=== PATIENT | female | born 1950 | race African-American/Black ===

== ENCOUNTER 2017-05-18 14:23 | Inpatient (IN) | payer OTHER, BC ==
[2017-05-18 17:16] LABS: BASOPHIL 1.6 % (0-2.0); MCHC 29.4 g/dl (32.0-36.0); MEAN CELL VOLUME 62.3 fl (80-96); MEAN PLT VOLUME 8.8 fl (7.5-11.1); NEUTROPHILS 74.3 % (42.8-82.8); PLATELET COUNT 429 K/MM3 (134-434); RDW 21.8 % (11.6-15.6); WHITE BLOOD COUNT 10.6 K/mm3 (4.0-10.0)
[2017-05-18 17:25] LABS: MCH 18.3 pg (25.7-33.7)
[2017-05-18 17:38] LABS: INR 1.03 (0.82-1.09); PROTHROMBIN TIME (PATIENT) 11.3 SEC (9.98-11.88)
[2017-05-18 18:01] LABS: ALBUMIN 4.1 g/dl (3.4-5.0); ALK PHOS 84 U/L (45-117); ANION GAP 10 (8-16); BILIRUBIN,TOTAL 1.1 mg/dL (0.2-1.0); CALCIUM 9.4 mg/dL (8.5-10.1); CO2 27 mmol/L (21-32); CREATININE 0.7 mg/dL (0.55-1.02); GLUCOSE,RANDOM 89 mg/dL (74-106); SGOT/AST 22 U/L (15-37); SGPT/ALT 22 U/L (12-78); TOT PROT 7.9 g/dl (6.4-8.2)
[2017-05-18 18:44] LABS: URINE APPEARANCE CLEAR; URINE BILIRUBIN NEGATIVE (NEGATIVE); URINE BLOOD NEGATIVE (NEGATIVE); URINE COLOR STRAW; URINE GLUCOSE (UA) NEGATIVE (NEGATIVE); URINE KETONE NEGATIVE (NEGATIVE); URINE NITRITE NEGATIVE (NEGATIVE); URINE PROTEIN NEGATIVE (NEGATIVE); URINE UROBILINOGEN NEGATIVE mg/dL (0.2-1.0)
[2017-05-18 18:45] LABS: URINE LEUK ESTERASE 2+ (NEGATIVE)
[2017-05-18 18:51] LABS: URINE BACTERIA RARE /hpf (NONE SEEN); URINE MUCUS RARE; URINE RBC 2 /hpf (0-3); URINE WBC 16 /hpf (3-5)
[2017-05-18 19:14] LABS: PLATELET ESTIMATE SLT INCREASED (NORMAL)
[2017-05-18 19:15] LABS: ANISOCYTOSIS 2+; HYPOCHROMIA 3+; MICROCYTOSIS 2+; POIKILOCYTOSIS 1+; POLYCHROMASIA FEW
[2017-05-18 19:16] LABS: OVALOCYTES 1+; TEAR DROP CELLS FEW
--- NOTE | 2017-05-18 19:53 | PDOC ---
History of Present Illness <Izabella Harryis - Last Filed: 05/18/17 20:07> - General History Source: Patient Exam Limitations: No Limitations - History of Present Illness Initial Comments: This is a 67 yo female with h/o chronic iron deficiency anemia, GERD, PUD, diverticulitis, NIDDM, and HTN who presents for low hemoglobin measured on routine labs at her PCP's office yesterday. Dr. Multani states that the patient's hemoglobin was 6.2 yesterday and he advised her to come in to the ED for basic lab workup, transfusion, fecal occult blood test, admission, and consultation with hematology and oncology. The patient denies any new symptoms over the past few days and notes that she has had a gradual onset of fatigue, generalized weakness, and lightheadedness over the past several months. She only recalls one episode of black stool about two months ago. She denies any chest pain, shortness of breath, abdominal pain, headache, vision changes, fever, or other symptoms of illness. <DarcySharon - Last Filed: 05/18/17 22:10> - General Chief Complaint: Revisit, Lab Variance Stated Complaint: LOW BLOOD COUNT (PCP SENT) Time Seen by Provider: 05/18/17 15:44 Past History <KamrynIzabellaKhai - Last Filed: 05/18/17 20:07> - Past Medical History Anemia: Yes (iron deficiency, pt states since youth) Diabetes: Yes GI Disorders: Yes HTN: Yes Hypercholesterolemia: Yes Psychiatric Problems: Yes (ANXIETY.) Other medical history: GUILLIAN BARRE. - Surgical History Abdominal Surgery: Yes Cholecystectomy: Yes - Psycho/Social/Smoking Cessation Hx Anxiety: Yes Suicidal Ideation: No Smoking History: Never smoked Hx Alcohol Use: No Drug/Substance Use Hx: No Substance Use Type: None <Taveras,Sharon - Last Filed: 05/18/17 22:10> - Past Medical History Allergies/Adverse Reactions: Allergies Allergy/AdvReac Type Severity Reaction Status Date / Time latex Allergy Difficulty Verified 05/18/17 14:24 Breathing No Known Drug Allergies Allergy Verified 05/18/17 14:24 Home Medications: Ambulatory Orders Buspirone HCl 15 mg PO PRN PRN 02/13/14 Diltiazem HCl [Diltiazem ER] 180 mg PO DAILY 05/07/14 Ezetimibe/Simvastatin [Vytorin 10-20 mg Tablet] 1 each PO DAILY 02/13/14 Omeprazole 40 mg PO DAILY 02/13/14 Sitagliptin Phos/Metformin HCl [Janumet 50-500 mg Tablet] 1 each PO DAILY Sucralfate 1 gm PO BID 02/13/14 Review of Systems - Review of Systems Constitutional: Yes: Weakness (mild generalized), Other (fatigue). No: Chills, Fever, Unexplained wgt Loss HEENTM: No: Nose Congestion, Throat Pain Respiratory: No: Cough, Shortness of Breath Cardiac (ROS): No: Chest Pain, Palpitations ABD/GI: No: Constipated, Diarrhea, Nausea, Vomiting : No: Burning, Dysuria Musculoskeletal: Yes: Other (left shoulder pain). No: Back Pain, Neck Pain Integumentary: No: Bruising, Rash Neurological: No: Headache, Numbness, Tingling, Weakness, Dizziness Endocrine: No: Unexplained Weight Gain, Unexplained Weight Loss Hematologic/Lymphatic: Yes: Anemia <Sharon Taveras - Last Filed: 05/18/17 22:10> *Physical Exam - Vital Signs Last Vital Signs Temp Pulse Resp BP Pulse Ox 98.3 F 64 18 140/66 98 05/18/17 14:24 05/18/17 14:24 05/18/17 14:24 05/18/17 14:24 05/18/17 14:24 <Khai Harry - Last Filed: 05/18/17 20:07> - Vital Signs Last Vital Signs Temp Pulse Resp BP Pulse Ox 98.3 F 64 18 140/66 98 05/18/17 14:24 05/18/17 14:24 05/18/17 14:24 05/18/17 14:24 05/18/17 14:24 - Physical Exam General Appearance: Yes: Nourished, Appropriately Dressed, Other (pale, pleasant adult female who is conversive). No: Apparent Distress HEENT: positive: EOMI, Normal Voice, Pale Conjunctivae, Hearing Grossly Normal. negative: Scleral Icterus (R), Scleral Icterus (L), Nasal Congestion Neck: positive: Trachea midline, Supple. negative: Tender, Rigid Respiratory/Chest: positive: Lungs Clear, Normal Breath Sounds. negative: Respiratory Distress, Crackles, Rhonchi, Stridor, Wheezing Cardiovascular: positive: Regular Rhythm, Regular Rate. negative: Edema, Murmur Vascular Pulses: Dorsalis-Pedis (R): 2+, Doralis-Pedis (L): 2+ Gastrointestinal/Abdominal: positive: Normal Bowel Sounds, Soft. negative: Tender, Organomegaly, Pulsatile Mass, Guarding Rectal Exam: positive: normal exam, normal rectal tone. negative: hemorrhoids Musculoskeletal: positive: Normal Inspection, Other (no pain on ROM of left shoulder, no tenderness to palpation of left shoulder). negative: Decreased Range of Motion, Vertebral Tenderness Extremity: positive: Normal Capillary Refill, Normal Inspection, Normal Range of Motion. negative: Tender, Cyanosis Integumentary: positive: Dry, Warm, Pale. 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 negative : EOM Palsy, Facial Droop, Confused <Sharon Taveras - Last Filed: 05/18/17 22:10> Heart Score/ECG Review - History History: Slightly suspicious - Electrocardiogram EKG: Non specific repolarization disturbance - Age Age: >/= 65 - Risk Factors Risk Factors Heart Score: Yes Hx Hypertension, Yes Hx Diabetes Based on the list above the patient has:: 1-2 risk factors - Troponin Troponin: </= normal limit - Score Heart Score - Total: 4 <Sharon Taveras Filed: 05/18/17 22:10> ED Treatment Course - LABORATORY CBC & Chemistry Diagram: 05/18/17 16:48 05/18/17 16:48 - ADDITIONAL ORDERS Additional order review: Laboratory Results 05/18/17 05/18/17 05/18/17 18:30 18:30 16:48 INR PTT (Actin FS) Sodium Potassium Chloride Carbon Dioxide Anion Gap BUN Creatinine Creat Clearance w eGFR Random Glucose Calcium Total Bilirubin AST ALT Alkaline Phosphatase Troponin I Total Protein Albumin Urine Color Straw Urine Appearance Clear Urine pH 5.0 Urine Protein Negative Urine Glucose (UA) Negative Urine Ketones Negative Urine Blood Negative Urine Nitrite Negative Urine Bilirubin Negative Urine Urobilinogen Negative Ur Leukocyte Esterase 2+ H Urine RBC 2 Urine WBC 16 Ur Epithelial Cells Rare Urine Bacteria Rare Urine Mucus Rare Stool Occult Blood Negative Blood Type O POSITIVE Antibody Screen Negative 05/18/17 05/18/17 05/18/17 16:48 16:48 16:48 INR 1.03 PTT (Actin FS) 27.0 Sodium 139 Potassium 4.0 Chloride 102 Carbon Dioxide 27 Anion Gap 10 BUN 12 Creatinine 0.7 D Creat Clearance w eGFR > 60 Random Glucose 89 Calcium 9.4 Total Bilirubin 1.1 H AST 22 ALT 22 Alkaline Phosphatase 84 Troponin I < 0.02 Total Protein 7.9 Albumin 4.1 Urine Color Urine Appearance Urine pH Urine Protein Urine Glucose (UA) Urine Ketones Urine Blood Urine Nitrite Urine Bilirubin Urine Urobilinogen Ur Leukocyte Esterase Urine RBC Urine WBC Ur Epithelial Cells Urine Bacteria Urine Mucus Stool Occult Blood Blood Type Antibody Screen 05/18/17 16:48 RBC 3.67 MCV 62.3 L D MCHC 29.4 L RDW 21.8 H D MPV 8.8 Neutrophils % 74.3 Lymphocytes % 18.1 Monocytes % 5.0 Eosinophils % 1.0 Basophils % 1.6 <Khai Harry - Last Filed: 05/18/17 20:07> - LABORATORY CBC & Chemistry Diagram: 05/18/17 16:48 05/18/17 16:48 - ADDITIONAL ORDERS Additional order review: Laboratory Results 05/18/17 05/18/17 05/18/17 18:30 18:30 16:48 INR PTT (Actin FS) Sodium Potassium Chloride Carbon Dioxide Anion Gap BUN Creatinine Creat Clearance w eGFR Random Glucose Calcium Total Bilirubin AST ALT Alkaline Phosphatase Troponin I Total Protein Albumin Urine Color Straw Urine Appearance Clear Urine pH 5.0 Urine Protein Negative Urine Glucose (UA) Negative Urine Ketones Negative Urine Blood Negative Urine Nitrite Negative Urine Bilirubin Negative Urine Urobilinogen Negative Ur Leukocyte Esterase 2+ H Urine RBC 2 Urine WBC 16 Ur Epithelial Cells Rare Urine Bacteria Rare Urine Mucus Rare Stool Occult Blood Negative Blood Type O POSITIVE Antibody Screen Negative 05/18/17 05/18/17 05/18/17 16:48 16:48 16:48 INR 1.03 PTT (Actin FS) 27.0 Sodium 139 Potassium 4.0 Chloride 102 Carbon Dioxide 27 Anion Gap 10 BUN 12 Creatinine 0.7 D Creat Clearance w eGFR > 60 Random Glucose 89 Calcium 9.4 Total Bilirubin 1.1 H AST 22 ALT 22 Alkaline Phosphatase 84 Troponin I < 0.02 Total Protein 7.9 Albumin 4.1 Urine Color Urine Appearance Urine pH Urine Protein Urine Glucose (UA) Urine Ketones Urine Blood Urine Nitrite Urine Bilirubin Urine Urobilinogen Ur Leukocyte Esterase Urine RBC Urine WBC Ur Epithelial Cells Urine Bacteria Urine Mucus Stool Occult Blood Blood Type Antibody Screen 05/18/17 16:48 RBC 3.67 MCV 62.3 L D MCHC 29.4 L RDW 21.8 H D MPV 8.8 Neutrophils % 74.3 Lymphocytes % 18.1 Monocytes % 5.0 Eosinophils % 1.0 Basophils % 1.6 - RADIOLOGY Radiology Studies Ordered: Category Date Time Status CHEST X-RAY PORTABLE* [RAD] Stat Radiology 05/18/17 17:35 Ordered <Sharon Taveras - Last Filed: 05/18/17 22:10> Medical Decision Making - Medical Decision Making 67 yo female with chronic iron deficiency anemia, GERD, PUD, NIDDM, HTN p/w lab finding of anemia. Pt notes no change in her chronic baseline over the past few weeks, but does fatigue during the day. Exam notable for VS wnl, pale skin, conjunctivae, and palm creases. DDX includes iron or b12 deficiency, blood loss (most likely GI), myelodysplasia /myelofibrosis, Ordered are CBCD, CMP, coags, type&screen, FOBT, EKG, troponin (d/t shoulder pain), UA. Laboratory Tests 05/18/17 05/18/17 05/18/17 16:48 16:48 16:48 WBC 10.6 H RBC 3.67 Hgb 6.7 L* D Hct 22.9 L D MCV 62.3 L D MCH 18.3 L MCHC 29.4 L RDW 21.8 H D Plt Count 429 D MPV 8.8 Neutrophils % 74.3 Lymphocytes % 18.1 Monocytes % 5.0 Eosinophils % 1.0 Basophils % 1.6 Platelet Estimate Slt increased Polychromasia Few Hypochromic-Microcytic 3+ Poikilocytosis 1+ Anisocytosis 2+ Microcytosis 2+ Macrocytosis 1+ Tear Drop Cells Few Ovalocytes 1+ Retic Count INR PTT (Actin FS) Sodium 139 Potassium 4.0 Chloride 102 Carbon Dioxide 27 Anion Gap 10 BUN 12 Creatinine 0.7 D Creat Clearance w eGFR > 60 Random Glucose 89 Calcium 9.4 Total Bilirubin 1.1 H AST 22 ALT 22 Alkaline Phosphatase 84 Troponin I < 0.02 Total Protein 7.9 Albumin 4.1 Urine Color Urine Appearance Urine pH Urine Protein Urine Glucose (UA) Urine Ketones Urine Blood Urine Nitrite Urine Bilirubin Urine Urobilinogen Ur Leukocyte Esterase Urine RBC Urine WBC Ur Epithelial Cells Urine Bacteria Urine Mucus Stool Occult Blood Blood Type Antibody Screen 05/18/17 05/18/17 05/18/17 16:48 16:48 16:48 WBC RBC Hgb Hct MCV MCH MCHC RDW Plt Count MPV Neutrophils % Lymphocytes % Monocytes % Eosinophils % Basophils % Platelet Estimate Polychromasia Hypochromic-Microcytic Poikilocytosis Anisocytosis Microcytosis Macrocytosis Tear Drop Cells Ovalocytes Retic Count 2.90 H INR 1.03 PTT (Actin FS) 27.0 Sodium Potassium Chloride Carbon Dioxide Anion Gap BUN Creatinine Creat Clearance w eGFR Random Glucose Calcium Total Bilirubin AST ALT Alkaline Phosphatase Troponin I Total Protein Albumin Urine Color Urine Appearance Urine pH Urine Protein Urine Glucose (UA) Urine Ketones Urine Blood Urine Nitrite Urine Bilirubin Urine Urobilinogen Ur Leukocyte Esterase Urine RBC Urine WBC Ur Epithelial Cells Urine Bacteria Urine Mucus Stool Occult Blood Blood Type O POSITIVE Antibody Screen Negative 05/18/17 05/18/17 18:30 18:30 WBC RBC Hgb Hct MCV MCH MCHC RDW Plt Count MPV Neutrophils % Lymphocytes % Monocytes % Eosinophils % Basophils % Platelet Estimate Polychromasia Hypochromic-Microcytic Poikilocytosis Anisocytosis Microcytosis Macrocytosis Tear Drop Cells Ovalocytes Retic Count INR PTT (Actin FS) Sodium Potassium Chloride Carbon Dioxide Anion Gap BUN Creatinine Creat Clearance w eGFR Random Glucose Calcium Total Bilirubin AST ALT Alkaline Phosphatase Troponin I Total Protein Albumin Urine Color Straw Urine Appearance Clear Urine pH 5.0 Urine Protein Negative Urine Glucose (UA) Negative Urine Ketones Negative Urine Blood Negative Urine Nitrite Negative Urine Bilirubin Negative Urine Urobilinogen Negative Ur Leukocyte Esterase 2+ H Urine RBC 2 Urine WBC 16 Ur Epithelial Cells Rare Urine Bacteria Rare Urine Mucus Rare Stool Occult Blood Negative Blood Type Antibody Screen FOBT is negative, UA without blood. Labs confirm anemia, which is microcytic. Reticulocytes 2.90% yielding reticulocyte index 0.7, inadequate bone marrow response to anemia. Other possibilities on the DDX are anemia of chronic disease, thalassemia, sideroblastic anemia. Blood transfusion is discussed at length with the patient. The patient chooses to defer blood transfusion at this time, as she wishes to talk with her family first. She denies any taoism or cultural conflicts with blood transfusion. VS remain wnl and patient denies symptoms. The patient is admitted to Dr. Multani with consults ordered for Hematology and GI. <Sharon Taveras - Last Filed: 05/18/17 22:10> *DC/Admit/Observation/Transfer - Discharge Dispostion Admit: Yes <Khai Harry - Last Filed: 05/18/17 20:07> - Discharge Dispostion Admit: Yes - Attestations Physician Attestion: I, Dr. Sharon Taveras, attest that this document has been prepared under my direction and personally reviewed by me in its entirety. I further attest, that it accurately reflects all work, treatment, procedures and medical decision -making performed by me. <Sharon Taveras - Last Filed: 05/18/17 22:10> Diagnosis at time of Disposition: Anemia Qualifiers: Anemia type: unspecified type Qualified Code(s): D64.9 - Anemia, unspecified - Discharge Dispostion Condition at time of disposition: Guarded - Referrals Referrals: Luigi Multani MD [Primary Care Provider] -
--- NOTE | 2017-05-18 20:06 | PDOC ---
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 Patient denies nausea/vomiting/melena/bright red blood per rectum. Patient was seen and evaluated by Dr. Adame and referred to the ER for further evaluation and treatment. - Physicial Exam PE: 05/18/17 20:03 Patient is awake and alert, afebrile, hemodynamically stable. Conjunctiva are noted to be pale. Lungs are clear to auscultation; abdomen is soft and nontender and nondistended; rrr; there is no petechial rash. Gait is stable. Patient's stool is guaiac-negative. - Medical Decision Making 05/18/17 20:04 Patient is 67-year-old female with multiple coronary disease, history of chronic anemia who presents to the ER with worsening anemia, associated with mild symptoms. In the ER, patient symptomatically stable without evidence of acute hemorrhage. H&H is noted to be 6 and 22 with a low MCV/MCH and high RDW consistent with iron deficiency anemia. at This time, patient does not know if she wishes to be transfused. Will admit to med/surge for further evaluation and treatment.
[2017-05-18 23:37] VITALS: BMI 30.6
[2017-05-19 07:18] LABS: BASOPHIL 0.9 % (0-2.0); EOSINOPHIL 1.2 % (0-4.5); MCHC 29.4 g/dl (32.0-36.0); MEAN CELL VOLUME 61.6 fl (80-96); MEAN PLT VOLUME 8.8 fl (7.5-11.1); NEUTROPHILS 61.1 % (42.8-82.8); PLATELET COUNT 350 K/MM3 (134-434); RDW 20.9 % (11.6-15.6); WHITE BLOOD COUNT 7.8 K/mm3 (4.0-10.0)
[2017-05-19 07:30] LABS: MCH 18.1 pg (25.7-33.7)
[2017-05-19 07:52] LABS: ALBUMIN 3.3 g/dl (3.4-5.0); ANION GAP 7 (8-16); BILIRUBIN,TOTAL 0.9 mg/dL (0.2-1.0); CALCIUM 9.1 mg/dL (8.5-10.1); CO2 29 mmol/L (21-32); CREATININE 0.7 mg/dL (0.55-1.02); GLUCOSE,RANDOM 99 mg/dL (74-106); LDH 158 U/L (84-246); SGOT/AST 16 U/L (15-37); SGPT/ALT 16 U/L (12-78); TOT PROT 6.5 g/dl (6.4-8.2)
[2017-05-19 08:00] LABS: ALK PHOS 64 U/L (45-117); FERRITIN 2.318 ng/ml (6.9-282.5)
[2017-05-19] MEDS: FERROUS SO4 325 MG TABLET (FP) PO SCH ×2 (08:30→18:18)
[2017-05-19] MEDS: metFORMIN HCL 500 MG TABLET (FP) PO SCH ×2 (08:30→18:18)
[2017-05-19] MEDS: PANTOPRAZOLE 40 MG TABLET (FP) PO SCH ×2 (08:30→11:12)
[2017-05-19 09:02] LABS: ANISOCYTOSIS 2+; HYPOCHROMIA 3+; MICROCYTOSIS 2+; PLATELET ESTIMATE ADEQUATE (NORMAL); POLYCHROMASIA 1+; TARGET CELLS FEW
--- NOTE | 2017-05-19 10:23 | CON.GI ---
Consult Consult Specialty:: GI for Dr. Multani Referred by:: Luigi Multani Reason for Consultation:: Anemia - History of Present Illness Chief Complaint: "My doctor sent me to the hospital" History of Present Illness: 67M admitted through [facility] ER for evaluation of anemia. Ms. Robles explains that she went to Dr. Multani for a check-up, was told that she was anemic and sent to the ER. Outpaient Hgb was 6 per the patient. She does admit to increasing MARIE as well as fatigue over the last several weeks. Aside from 3 days of dark bowel movements noted about three months ago, she denies any change in bowel habits. She also denies any sharlene bleeding or unintentional weight loss. She follows with teachers assistant Dr. Gavin Gates. He has performed upper endoscopise sand colonoscopies on Ms. Robles, the last being in 2014. She tells me that at that time she was told of a large hiatal hernia and otherwise the tests were unremarkable. She remembers that colon polyps were found during her fisrts colonoscopuy (she believes at she has had a total of 4-5 colonoscopies). She takes an 81mg ASA daily along with Omeprazole chronically and otherwise denies NSAID use . Current Hgb 5.6 with a ferritin of 2.3. Stool specimen sent from the ER was negative for occult blood. She has a maternal cousin who had colon cancer diagnosed at age 60, otherwise there is no family history of colorectal cancer or other GI malignancy. Review of [facility] revealed Hgb 11.6 in 2013. - History Source History Provided By: Patient, Medical Record Limitations to Obtaining History: No Limitations - Past Medical History Cardio/Vascular: Yes: CAD (Treated mediclly - follows with Dr. 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 Returned last week) Home Medications - Allergies Allergies/Adverse Reactions: Allergies Allergy/AdvReac Type Severity Reaction Status Date / Time latex Allergy Difficulty Verified 05/18/17 14:24 Breathing No Known Drug Allergies Allergy Verified 05/18/17 14:24 - Home Medications Home Medications: Ambulatory Orders Aspirin [ASA -] 81 mg PO DAILY 05/19/17 Atorvastatin Ca [Lipitor] 20 mg PO HS 05/19/17 Diltiazem HCl [Cartia Xt] 120 mg PO AM 05/19/17 Losartan Potassium 05/19/17 Metformin HCl 500 mg PO BID 05/19/17 Nebivolol [Bystolic -] 10 mg PO HS 05/19/17 Omeprazole 40 mg PO DAILY 05/19/17 Family Disease History - Family Disease History Family Disease History: Other: Father (: 84: blood problem), Mother (Alive: CVA), Son (x 3 healthy) Other Family History: 12 1/2 siblings: healthy Review of Systems - Review of Systems Constitutional: denies: Lethargy, Unintentional Wgt. Loss Cardiovascular: denies: Chest Pain Respiratory: reports: SOB on Exertion Gastrointestinal: reports: Diarrhea (Describes chronic loose BM's after eating) . denies: Abdominal Pain, Bloating, Constipation Genitourinary: denies: Hematuria Physical Exam-GI Vital Signs: Vital Signs Temperature 97.9 F 05/19/17 06:00 Pulse Rate 62 05/19/17 06:00 Respiratory Rate 20 05/19/17 06:00 Blood Pressure 110/57 05/19/17 06:00 O2 Sat by Pulse Oximetry (%) 96 05/19/17 01:32 Constitutional: Yes: Calm Eyes: No: Sclera Icterus Cardiovascular: Yes: Regular Rate and Rhythm. No: Murmur Respiratory: Yes: CTA Bilaterally Gastrointestinal Inspection: Yes: Scars (vertical pelvic surgical scar) ...Auscultate: Yes: Normoactive Bowel Sounds ...Palpate: No: Hepatomegaly, Splenomegaly, Tenderness ...Percussion: No: Tympanitic ...Rectal Exam: Yes: Other (Scant light brown stool, guaiac negative) Edema: No Neurological: Yes: Alert, Oriented Labs: CBC, BMP 05/19/17 05:35 05/19/17 05:35 INR, PTT INR 1.03 (0.82-1.09) 05/18/17 16:48 Laboratory Tests 05/19/17 05:35 Ferritin 2.318 L Imaging - Results Chest X-ray: Report Reviewed Problem List - Problems (1) Microcytic anemia Assessment/Plan: Guaiac negative on exam however with ferritin of 2 suggestive of iron deficiency. I discussed this with Ms. Robles. We discussed further work-up from a GI standpoint when H/H permits. We discussed upper endoscopy / colonoscopy to exclude potential sources such as bleeding blood vessels, blood loss from large hiatal hernia, ulcers, polyps or tumors of the GI tract such as colon cancers. We discussed potential risks of the procedures like but not limited to bleeding, perforation requiring surgery to repair, infection, sedation medication effects all of which could be potentially life threatening. She has agreed to the procedures. Would not bowel prep today as her Hgb is quite low. Possible EGD tomorrow followed by colonoscopy. Cardio eval prior to procedures Code(s): D50.9 - IRON DEFICIENCY ANEMIA, UNSPECIFIED
--- NOTE | 2017-05-19 10:45 | HP ---
DATE OF ADMISSION: DATE OF DICTATION: 05/19/2017 HISTORY OF PRESENT ILLNESS: This is a 67-year-old female known to have anemia in the past. She has also had syndrome in the past with some residual effect. Came to the office for followup. Blood work done showed hemoglobin 6.2. Advised to come to the ER for blood transfusion and workup of the anemia. This morning repeat blood work is 5.6. Patient is not very willing to get blood transfusion. PHYSICAL EXAMINATION: General: Today, she is awake, alert, oriented, not in distress. Vital Signs: Blood pressure is 110/60, pulse 72, respiration 20, temperature 98. HEENT: Unremarkable. Neck: Supple. No JVD. Lungs: Clear. Heart: S1, S2 normal. No S3, S4. Abdomen: Soft. Extremities: Legs - No edema. Rectal: Done yesterday stool guaiac is pending. Patient to be evaluated by glove brusher. IMPRESSION: Severe anemia, etiology not clear. Arteriosclerotic heart disease. PLAN: GI consult, Dr. Chavez, and Hematology consult with Dr. Collazo. Will discuss. Will transfuse 4 units of packed cells today. ANA FERGUSON M.D. [id number]
--- NOTE | 2017-05-19 11:33 | CON.CARD ---
Consult Consult Specialty:: Cardiology Referred by:: Dr. Multani Reason for Consultation:: Cardiac evaluation - History of Present Illness Chief Complaint: Admitted with profound anemia, shortness of breath History of Present Illness: Patient is a 67 year old female well known to us (sees Dr. Delilah Mcbride in the office) with underlying history of coronary artery disease, non- obstructive, angina pectoris, endothelial dysfunction, diastolic left ventricular dysfunction class 0 NYHA classification LV failure, PAF with [id number] score of 4 currently not on anticoagulation, mitral valve regurgitation who presents with weakness and shortness of breath. Patient was brought in from her PMD office and was found to be profoundly anemic to hemoglobin in the 5's. She is to be transfused with PRBC today. She denies chest pain or palpitation at this time. She denies paroxysmal nocturnal dyspnea or orthopnea. She denies fever or chills. She denies headache or lightheadedness. She denies nausea, vomiting, diarrhea or abdominal pain. Cardiology consultation was called for further evaluation. Patient had seen a skidway worker at [facility] in [place] and her last GI work up was in 2014. - History Source History Provided By: Patient, Medical Record Limitations to Obtaining History: No Limitations - Past Medical History Cardio/Vascular: Yes: CAD (Non-obstructive), HTN, Hyperlipdemia Gastrointestinal: Yes: Other (History of colon polyps) Endocrine: Yes: Diabetes Mellitus - Past Surgical History Past Surgical History: Yes: Breast Biopsy (bilateral benign breast cysts), Cholecystectomy (Laparoscopic), (x 3) - Alcohol/Substance Use Hx Alcohol Use: No - Smoking History Smoking history: Never smoked - Social History Usual Living Arrangement: With Spouse ADL: Independent Occupation: Retired [employer] History of Recent Travel: Yes (Road trip to [place] [facility]. Returned last week) Home Medications - Allergies Allergies/Adverse Reactions: Allergies Allergy/AdvReac Type Severity Reaction Status Date / Time latex Allergy Difficulty Verified 05/18/17 14:24 Breathing No Known Drug Allergies Allergy Verified 05/18/17 14:24 - Home Medications Home Medications: Ambulatory Orders Aspirin [ASA -] 81 mg PO DAILY 05/19/17 Atorvastatin Ca [Lipitor] 20 mg PO HS 05/19/17 Diltiazem HCl [Cartia Xt] 120 mg PO AM 05/19/17 Losartan Potassium 05/19/17 Metformin HCl 500 mg PO BID 05/19/17 Nebivolol [Bystolic -] 10 mg PO HS 05/19/17 Omeprazole 40 mg PO DAILY 05/19/17 Family Disease History - Family Disease History Family Disease History: Other: Father (: 84: blood problem), Mother (Alive: CVA), Son (x 3 healthy) Other Family History: 12 1/2 siblings: healthy Review of Systems - Review of Systems Constitutional: denies: Chills, Fever Cardiovascular: reports: Shortness of Breath. denies: Chest Pain, Palpitations Respiratory: reports: SOB. denies: Cough, Hemoptysis, Orthopnea, PND Gastrointestinal: denies: Abdominal Pain, Constipation, Diarrhea, Melena, Nausea , Rectal Bleeding, Vomiting Musculoskeletal: reports: Joint Pain Neurological: reports: Weakness. denies: Dizziness, Headache, Seizure, Syncope Vital Signs: Vital Signs Temperature 97.9 F 05/19/17 06:00 Pulse Rate 62 05/19/17 06:00 Respiratory Rate 20 05/19/17 06:00 Blood Pressure 110/57 05/19/17 06:00 O2 Sat by Pulse Oximetry (%) 96 05/19/17 01:32 Neck: Yes: Supple Respiratory: Yes: CTA Bilaterally Gastrointestinal: Yes: Normal Bowel Sounds, Soft. No: Tenderness Cardiovascular: Yes: Regular Rate and Rhythm JVD: No Carotid Bruit: No PMI: Non-Displaced Heart Sounds: Yes: S1, S2 Edema: No - Other Data Labs, Other Data: CBC, BMP 05/19/17 05:35 05/19/17 05:35 INR, PTT INR 1.03 (0.82-1.09) 05/18/17 16:48 Laboratory Results - last 24 hr 05/18/17 05/18/17 05/18/17 16:48 16:48 16:48 WBC 10.6 H RBC 3.67 Hgb 6.7 L* D Hct 22.9 L D MCV 62.3 L D MCH 18.3 L MCHC 29.4 L RDW 21.8 H D Plt Count 429 D MPV 8.8 Neutrophils % 74.3 Lymphocytes % 18.1 Monocytes % 5.0 Eosinophils % 1.0 Basophils % 1.6 Platelet Estimate Slt increased Platelet Comment Polychromasia Few Hypochromic-Microcytic 3+ Poikilocytosis 1+ Anisocytosis 2+ Microcytosis 2+ Macrocytosis 1+ Target Cells Tear Drop Cells Few Ovalocytes 1+ ESR Retic Count INR PTT (Actin FS) Sodium 139 Potassium 4.0 Chloride 102 Carbon Dioxide 27 Anion Gap 10 BUN 12 Creatinine 0.7 D Creat Clearance w eGFR > 60 POC Glucometer Random Glucose 89 Calcium 9.4 Ferritin Total Bilirubin 1.1 H AST 22 ALT 22 Alkaline Phosphatase 84 LD Total Troponin I < 0.02 Total Protein 7.9 Albumin 4.1 Vitamin B12 Serum Folate TSH Urine Color Urine Appearance Urine pH Ur Specific Perry Urine Protein Urine Glucose (UA) Urine Ketones Urine Blood Urine Nitrite Urine Bilirubin Urine Urobilinogen Ur Leukocyte Esterase Urine RBC Urine WBC Ur Epithelial Cells Urine Bacteria Urine Mucus Stool Occult Blood Blood Type Antibody Screen Crossmatch 05/18/17 05/18/17 05/18/17 16:48 16:48 16:48 WBC RBC Hgb Hct MCV MCH MCHC RDW Plt Count MPV Neutrophils % Lymphocytes % Monocytes % Eosinophils % Basophils % Platelet Estimate Platelet Comment Polychromasia Hypochromic-Microcytic Poikilocytosis Anisocytosis Microcytosis Macrocytosis Target Cells Tear Drop Cells Ovalocytes ESR Retic Count 2.90 H INR 1.03 PTT (Actin FS) 27.0 Sodium Potassium Chloride Carbon Dioxide Anion Gap BUN Creatinine Creat Clearance w eGFR POC Glucometer Random Glucose Calcium Ferritin Total Bilirubin AST ALT Alkaline Phosphatase LD Total Troponin I Total Protein Albumin Vitamin B12 Serum Folate TSH Urine Color Urine Appearance Urine pH Ur Specific Perry Urine Protein Urine Glucose (UA) Urine Ketones Urine Blood Urine Nitrite Urine Bilirubin Urine Urobilinogen Ur Leukocyte Esterase Urine RBC Urine WBC Ur Epithelial Cells Urine Bacteria Urine Mucus Stool Occult Blood Blood Type O POSITIVE Antibody Screen Negative Crossmatch See Detail 05/18/17 05/18/17 05/19/17 18:30 18:30 05:35 WBC 7.8 RBC 3.08 L Hgb 5.6 L* D Hct 18.9 L D MCV 61.6 L MCH 18.1 L MCHC 29.4 L RDW 20.9 H Plt Count 350 MPV 8.8 Neutrophils % 61.1 Lymphocytes % 28.8 D Monocytes % 8.0 Eosinophils % 1.2 Basophils % 0.9 Platelet Estimate Adequate Platelet Comment No clumping noted Polychromasia 1+ Hypochromic-Microcytic 3+ Poikilocytosis Anisocytosis 2+ Microcytosis 2+ Macrocytosis Target Cells Few Tear Drop Cells Ovalocytes ESR Retic Count INR PTT (Actin FS) Sodium Potassium Chloride Carbon Dioxide Anion Gap BUN Creatinine Creat Clearance w eGFR POC Glucometer Random Glucose Calcium Ferritin Total Bilirubin AST ALT Alkaline Phosphatase LD Total Troponin I Total Protein Albumin Vitamin B12 Serum Folate TSH Urine Color Straw Urine Appearance Clear Urine pH 5.0 Ur Specific Perry 1.010 Urine Protein Negative Urine Glucose (UA) Negative Urine Ketones Negative Urine Blood Negative Urine Nitrite Negative Urine Bilirubin Negative Urine Urobilinogen Negative Ur Leukocyte Esterase 2+ H Urine RBC 2 Urine WBC 16 Ur Epithelial Cells Rare Urine Bacteria Rare Urine Mucus Rare Stool Occult Blood Negative Blood Type Antibody Screen Crossmatch 05/19/17 05/19/17 05/19/17 05:35 06:02 06:05 WBC RBC Hgb Hct MCV MCH MCHC RDW Plt Count MPV Neutrophils % Lymphocytes % Monocytes % Eosinophils % Basophils % Platelet Estimate Platelet Comment Polychromasia Hypochromic-Microcytic Poikilocytosis Anisocytosis Microcytosis Macrocytosis Target Cells Tear Drop Cells Ovalocytes ESR 23 Retic Count INR PTT (Actin FS) Sodium 141 Potassium 3.8 Chloride 105 Carbon Dioxide 29 Anion Gap 7 L BUN 15 D Creatinine 0.7 Creat Clearance w eGFR > 60 POC Glucometer 117 Random Glucose 99 Calcium 9.1 Ferritin 2.318 L Total Bilirubin 0.9 AST 16 D ALT 16 D Alkaline Phosphatase 64 D LD Total 158 Troponin I Total Protein 6.5 Albumin 3.3 L Vitamin B12 1932 H Serum Folate 16 TSH 1.10 Urine Color Urine Appearance Urine pH Ur Specific Perry Urine Protein Urine Glucose (UA) Urine Ketones Urine Blood Urine Nitrite Urine Bilirubin Urine Urobilinogen Ur Leukocyte Esterase Urine RBC Urine WBC Ur Epithelial Cells Urine Bacteria Urine Mucus Stool Occult Blood Blood Type Antibody Screen Crossmatch Sinus rhythm, nonspecific ST abnormality Echo: Report Reviewed ((2016) normal LV function, mild LVH, mild MR and TR) Ejection Fraction %: LVEF > or = 40 % Imaging - Results Chest X-ray: Report Reviewed (Right atelectasis) EKG: Report Reviewed Problem List - Problems (1) Anemia Code(s): D64.9 - ANEMIA, UNSPECIFIED Qualifiers: Anemia type: iron deficiency Iron deficiency anemia type: chronic blood loss Qualified Code(s): D50.0 - Iron deficiency anemia secondary to blood loss (chronic) (2) Shortness of breath Code(s): R06.02 - SHORTNESS OF BREATH (3) CAD (coronary artery disease) Code(s): I25.10 - ATHSCL HEART DISEASE OF [place] CORONARY ARTERY W/O ANG PCTRS Qualifiers: Coronary Disease-Associated Artery/Lesion type: [place] artery [place] vs. transplanted heart: [place] heart Associated angina: without angina Qualified Code(s): I25.10 - Atherosclerotic heart disease of [place] coronary artery without angina pectoris (4) HTN (hypertension) Code(s): I10 - ESSENTIAL (PRIMARY) HYPERTENSION Qualifiers: Hypertension type: essential hypertension Qualified Code(s): I10 - Essential (primary) hypertension (5) Hypercholesterolemia Code(s): E78.00 - PURE HYPERCHOLESTEROLEMIA, UNSPECIFIED Assessment/Plan MPI (05/25/16): Small anterior fixed soft tissue attenuation LVEF 81% at rest and 77% at stress Assessment: 1. Profound anemia - GI blood loss with Iron deficiency 2. Coronary artery disease - nonobstructive, angina pectoris 3. Hypertension 4. Hypercholesterolemia 5. PAF currently in sinus rhythm - [id number] score of 4, not on anticoagulation 6. Class 0 NYHA classification LV failure 7. Diastolic LV dysfunction PLAN: 1. There appears to be no absolute contraindication in proceeding with planned GI work up including EGD and colonoscopy in view of absence of ischemic symptoms , decompensated congestive heart failure or malignant arrhythmias. 2. Continue current cardiac medications including Bystolic, Cardizem CD and Cozaar as BP tolerates. Continue Lipitor. Aspirin has been held 3. Transfuse PRBC and monitor H/H closely. Spoke with Dr. Kayode Lin Further plans are to follow Piter Dior MD
[2017-05-19] MEDS: NEBIVOLOL 10 MG TABLET (FP) PO SCH (12:11)
--- NOTE | 2017-05-19 13:27 | CONSULT ---
Consult - text type - Consultation Consultation Note: This is a 67 yo female with h/o chronic iron deficiency anemia, GERD, PUD, diverticulitis, NIDDM, and HTN who presents for anemia. The patient denies any new symptoms over the past few days and notes that she has had a gradual onset of fatigue, generalized weakness, and lightheadedness over the past several months. She only recalls one episode of black stool about two months ago. She denies any chest pain, shortness of breath, abdominal pain, headache, vision changes, fever, or other symptoms of illness. + vague epigastric pain - Past Medical History Anemia: Yes (iron deficiency, pt states since youth) Diabetes: Yes GI Disorders: Yes HTN: Yes Hypercholesterolemia: Yes Psychiatric Problems: Yes (ANXIETY.) Other medical history: GUILLIAN BARRE. - Surgical History Abdominal Surgery: Yes Cholecystectomy: Yes - Psycho/Social/Smoking Cessation Hx Anxiety: Yes Smoking History: Never smoked family h/o breast cancer in maternal aunt and colon cancer in maternal nephew - Past Medical History Allergies/Adverse Reactions: Allergies Allergy/AdvReac Type Severity Reaction Status Date / Time latex Allergy Difficulty Verified 05/18/17 14:24 Breathing No Known Drug Allergies Allergy Verified 05/18/17 14:24 Home Medications: Ambulatory Orders Buspirone HCl 15 mg PO PRN PRN 02/13/14 Diltiazem HCl [Diltiazem ER] 180 mg PO DAILY 02/13/14 Ezetimibe/Simvastatin [Vytorin 10-20 mg Tablet] 1 each PO DAILY 02/13/14 Omeprazole 40 mg PO DAILY 02/13/14 Sitagliptin Phos/Metformin HCl [Janumet 50-500 mg Tablet] 1 each PO DAILY Sucralfate 1 gm PO BID 02/13/14 - Vital Signs Last Vital Signs Temp Pulse Resp BP Pulse Ox 97.9 F 62 20 110/57 96 05/19/17 06:00 05/19/17 06:00 05/19/17 06:00 05/19/17 06:00 05/19/17 01:32 HEENT: SARITA, EOM Intact Oropharynx: No thrush, No mucositis Neck: Supple Cor: RSR, No murmurs, No gallops Lungs: Clear to P&A Abd: Soft, Normal bowel sounds, No organomegaly Ext:No significant edema A/P 67 y/o patient with iron deficiency anemia, severe symptomatic For blood transfusion-- 2 units PRBCs Ferritin 2 For Gi w/u -- EGd/colonoscopy will also check hemoglobin electrophoresis
--- NOTE | 2017-05-19 15:31 | EKG ---
Test Reason : Blood Pressure : / mmHG Vent. Rate : 067 BPM Atrial Rate : 067 BPM P-R Int : 158 ms QRS Dur : 096 ms QT Int : 424 ms P-R-T Axes : 054 013 013 degrees QTc Int : 448 ms NORMAL SINUS RHYTHM POSSIBLE LATERAL INFARCT (CITED ON OR BEFORE 13-FEB-2014) ABNORMAL ECG WHEN COMPARED WITH ECG OF 13-FEB-2014 14:15, NO SIGNIFICANT CHANGE WAS FOUND Confirmed by ALEXI SONI, ERNESTINA ([id number]) on 05/19/2017 3:30:57 PM Referred By: Confirmed By:ERNESTINA TRUONG MD
[2017-05-19] MEDS: ATORVASTATIN CA 20 MG TABLET (FP) PO SCH (22:00)
[2017-05-20 06:07] LABS: SERUM IRON 16 ug/dL (27-139); TOTAL IRON BINDING CAPACITY 440 ug/dL (250-450); UIBC 424 ug/dL (118-369)
[2017-05-20] MEDS: metFORMIN HCL 500 MG TABLET (FP) PO SCH ×2 (06:32→17:10)
[2017-05-20 07:41] LABS: MCH 20.9 pg (25.7-33.7); MCHC 31.2 g/dl (32.0-36.0); MEAN CELL VOLUME 66.8 fl (80-96); PLATELET COUNT 374 K/MM3 (134-434); RDW 27.4 % (11.6-15.6); WHITE BLOOD COUNT 9.2 K/mm3 (4.0-10.0)
[2017-05-20 07:50] LABS: ALBUMIN 3.7 g/dl (3.4-5.0); ANION GAP 7 (8-16); CALCIUM 9.4 mg/dL (8.5-10.1); CO2 29 mmol/L (21-32); CREATININE 0.8 mg/dL (0.55-1.02); GLUCOSE,RANDOM 105 mg/dL (74-106); SGOT/AST 18 U/L (15-37); SGPT/ALT 19 U/L (12-78)
[2017-05-20 07:52] LABS: ALK PHOS 70 U/L (45-117); BILIRUBIN,TOTAL 1.7 mg/dL (0.2-1.0); TOT PROT 7.4 g/dl (6.4-8.2)
--- NOTE | 2017-05-20 08:44 | PN ---
Progress Note, Physician Chief Complaint: Feels better History of Present Illness: june Morejon hematology consult and june Pearce GI consult appreciated - Current Medication List Current Medications: Active Medications Atorvastatin Calcium (Lipitor -) 20 mg PO HS [facility] Last Admin: 05/19/17 22:00 Dose: 20 mg Bupropion HCl (Wellbutrin Xl -) 150 mg PO DAILY [facility] Last Admin: 05/19/17 18:18 Dose: Not Given Diltiazem HCl (Cardizem Cd -) 120 mg PO DAILY [facility] Last Admin: 05/19/17 11:31 Dose: 120 mg Ferrous Sulfate (Feosol -) 325 mg PO BIDWM [facility] Last Admin: 05/19/17 18:18 Dose: 325 mg Metformin HCl (Glucophage -) 500 mg PO BIDAC [facility] Last Admin: 05/20/17 06:32 Dose: Not Given Nebivolol (Bystolic -) 10 mg PO DAILY [facility] Last Admin: 05/19/17 12:11 Dose: 10 mg Pantoprazole Sodium (Protonix -) 40 mg PO DAILY [facility] Last Admin: 05/19/17 11:12 Dose: Not Given - Objective Vital Signs: Vital Signs Temperature 98.7 F 05/19/17 23:00 Pulse Rate 54 L 05/19/17 23:00 Respiratory Rate 20 05/19/17 23:00 Blood Pressure 110/65 05/19/17 23:00 O2 Sat by Pulse Oximetry (%) 96 05/19/17 21:00 Constitutional: Yes: No Distress Eyes: Yes: WNL HENT: Yes: WNL Neck: Yes: WNL Cardiovascular: Yes: WNL Respiratory: Yes: WNL Gastrointestinal: Yes: Normal Bowel Sounds ...Rectal Exam: Yes: Deferred Genitourinary: Yes: WNL Edema: No Psychiatric: Yes: WNL Labs: CBC, BMP 05/20/17 06:00 05/20/17 06:00 INR, PTT INR 1.03 (0.82-1.09) 05/18/17 16:48 Assessment/Plan EGD and colonoscopy
[2017-05-20] MEDS: FERROUS SO4 325 MG TABLET (FP) PO SCH ×2 (08:48→17:11)
[2017-05-20] MEDS ORDERED: ePHEDrine SULFATE 50 MG/1 ML AMPULE ONE (10:19)
--- NOTE | 2017-05-20 11:10 | PN ---
Progress Note (short form) - Note Progress Note: GI Procedure NOte: Please see scanned EGD report. Multiple shallow but friable Julio César type ulcerations were noted at the cardia which may prove to be the cause of this anemia. Will schedule for colonoscopy after discussion with Dr Dennison. Surgical repair for this hiatal hernia should be considered as it is causing bleeding and I suspect some respiratory compromise as well.
[2017-05-20] MEDS ORDERED: PT OWN MED DRAWER 7, Y5N ONE (12:32)
[2017-05-20] MEDS: PANTOPRAZOLE 40 MG TABLET (FP) PO SCH (12:40)
[2017-05-20] MEDS: NEBIVOLOL 10 MG TABLET (FP) PO SCH (12:40)
[2017-05-20] MEDS: MAG HYDROX/AL HYDROX/SIMETH 30 ML UNIT-DOSE CUP PO SCH ×3 (12:43→22:16)
--- NOTE | 2017-05-20 14:44 | PN ---
Progress Note (short form) - Note Progress Note: GI NOte: Discussed case with Dr. Dennison. Have scheduled colonoscopy for 05/23 at 9AM and have entered prep orders.
[2017-05-20] MEDS: ATORVASTATIN CA 20 MG TABLET (FP) PO SCH (22:16)
[2017-05-20] MEDS: POLYETHYLENE GLYCOL 3350 119 GM BTL PO SCH (22:16)
[2017-05-21] MEDS: MAG HYDROX/AL HYDROX/SIMETH 30 ML UNIT-DOSE CUP PO SCH ×4 (06:38→22:41)
[2017-05-21] MEDS: metFORMIN HCL 500 MG TABLET (FP) PO SCH ×2 (06:39→17:28)
[2017-05-21 08:07] LABS: ANION GAP 7 (8-16); CALCIUM 9.3 mg/dL (8.5-10.1); CO2 30 mmol/L (21-32); CREATININE 0.8 mg/dL (0.55-1.02); GLUCOSE,RANDOM 103 mg/dL (74-106)
[2017-05-21 08:21] LABS: EOSINOPHIL 4.5 % (0-4.5); MCH 21.5 pg (25.7-33.7); MCHC 31.7 g/dl (32.0-36.0); PLATELET COUNT 343 K/MM3 (134-434); RDW 27.4 % (11.6-15.6); WHITE BLOOD COUNT 10.7 K/mm3 (4.0-10.0)
[2017-05-21] MEDS: FERROUS SO4 325 MG TABLET (FP) PO SCH ×2 (08:56→17:28)
[2017-05-21] MEDS: PANTOPRAZOLE 40 MG TABLET (FP) PO SCH (10:57)
[2017-05-21] MEDS: POLYETHYLENE GLYCOL 3350 119 GM BTL PO SCH ×2 (10:58→22:41)
[2017-05-21] MEDS: NEBIVOLOL 10 MG TABLET (FP) PO SCH (11:46)
--- NOTE | 2017-05-21 11:55 | PN ---
Progress Note, Physician Chief Complaint: Feels better History of Present Illness: No active bleeding - Current Medication List Current Medications: Active Medications Al Hydroxide/Mg Hydroxide (Mylanta Oral Suspension -) 30 ml PO Q6H [facility] Last Admin: 05/21/17 11:00 Dose: 30 ml Atorvastatin Calcium (Lipitor -) 20 mg PO HS [facility] Last Admin: 05/20/17 22:16 Dose: 20 mg Bisacodyl (Dulcolax -) 20 mg PO ONCE ONE Stop: 05/22/17 20:01 Bupropion HCl (Wellbutrin Xl -) 150 mg PO DAILY [facility] Last Admin: 05/21/17 10:56 Dose: 150 mg Diltiazem HCl (Cardizem Cd -) 120 mg PO DAILY [facility] Last Admin: 05/21/17 10:57 Dose: 120 mg Ferrous Sulfate (Feosol -) 325 mg PO BIDWM [facility] Last Admin: 05/21/17 08:56 Dose: 325 mg Metformin HCl (Glucophage -) 500 mg PO BIDAC [facility] Last Admin: 05/21/17 06:39 Dose: Not Given Nebivolol (Bystolic -) 10 mg PO DAILY [facility] Last Admin: 05/21/17 11:46 Dose: Not Given Pantoprazole Sodium (Protonix -) 40 mg PO DAILY [facility] Last Admin: 05/21/17 10:57 Dose: 40 mg Polyethylene Glycol (Miralax (For Daily Use) -) 17 gm PO BID [facility] Last Admin: 05/21/17 10:58 Dose: Not Given - Objective Vital Signs: Vital Signs Temperature 98.7 F 05/20/17 22:00 Pulse Rate 55 L 05/20/17 22:00 Respiratory Rate 18 05/20/17 22:00 Blood Pressure 112/66 05/20/17 22:00 O2 Sat by Pulse Oximetry (%) 97 05/20/17 21:00 Constitutional: Yes: No Distress Eyes: Yes: WNL HENT: Yes: WNL Neck: Yes: WNL Cardiovascular: Yes: Regular Rate and Rhythm Respiratory: Yes: WNL Gastrointestinal: Yes: Normal Bowel Sounds ...Rectal Exam: Yes: WNL Genitourinary: Yes: WNL Edema: No Labs: CBC, BMP 05/21/17 06:00 05/21/17 06:00 INR, PTT INR 1.03 (0.82-1.09) 05/18/17 16:48 Assessment/Plan Colonoscopy on Tuesday
--- NOTE | 2017-05-21 12:13 | PN ---
Progress Note (short form) - Note Progress Note: Chief Complaint: Events noted, notes reviewed. denies any chest pain, dyspnea persists but improved History of Present Illness: Seen and examined. Events noted, notes reviewed. denies any chest pain, dyspnea persists but improved Results of EGD noted, scheduled for colonoscopy this week, probably Tuesday Medications: Current Medications Al Hydroxide/Mg Hydroxide (Mylanta Oral Suspension -) 30 ml PO Q6H [facility] Last Admin: 05/21/17 11:00 Dose: 30 ml Atorvastatin Calcium (Lipitor -) 20 mg PO HS [facility] Last Admin: 05/20/17 22:16 Dose: 20 mg Bisacodyl (Dulcolax -) 20 mg PO ONCE ONE Stop: 05/22/17 20:01 Bupropion HCl (Wellbutrin Xl -) 150 mg PO DAILY [facility] Last Admin: 05/21/17 10:56 Dose: 150 mg Diltiazem HCl (Cardizem Cd -) 120 mg PO DAILY [facility] Last Admin: 05/21/17 10:57 Dose: 120 mg Ferrous Sulfate (Feosol -) 325 mg PO BIDWM [facility] Last Admin: 05/21/17 08:56 Dose: 325 mg Metformin HCl (Glucophage -) 500 mg PO BIDAC [facility] Last Admin: 05/21/17 06:39 Dose: Not Given Nebivolol (Bystolic -) 10 mg PO DAILY [facility] Last Admin: 05/21/17 11:46 Dose: Not Given Pantoprazole Sodium (Protonix -) 40 mg PO DAILY [facility] Last Admin: 05/21/17 10:57 Dose: 40 mg Polyethylene Glycol (Miralax (For Daily Use) -) 17 gm PO BID [facility] Last Admin: 05/21/17 10:58 Dose: Not Given Vital Signs: Last Vital Signs Temp Pulse Resp BP Pulse Ox 98.7 F 55 L 18 112/66 97 05/20/17 22:00 05/20/17 22:00 05/20/17 22:00 05/20/17 22:00 05/20/17 21:00 Intake & Output 05/18/17 05/19/17 05/20/17 05/21/17 23:59 23:59 23:59 23:59 Intake Total 240 905 550 150 Balance 240 905 550 150 Weight 195 lb 4.8 oz Neck: Supple Respiratory: Clear to A&P Bilaterally Cardiovascular: S1 S2 Regular Rate and Rhythm No Murmurs Clicks or Gallops Gastrointestinal: Soft Benign Normal Bowel Sounds Ext: No Edema Labs: CBC, BMP 05/21/17 06:00 05/21/17 06:00 INR, PTT INR 1.03 (0.82-1.09) 05/18/17 16:48 Assessment/Plan Assessment: 1. Anemia, related to probably gastro-intestinal bleed, large hiatal hernia with ulceration 2. Coronary artery disease non-obstructive CAD, angina pectoris, stable 3. Diastolic LV dysfunction with class 0 NYHA classification LV failure 4. History of paroxysmal atrial fibrillation [id number] score of 4 currently in sinus rhythm, not on anticoagulation 5. Hypertension 6. Diabetes Mellitus 7. Hypercholesterolemia PLAN: 1. Continue Bystolic, hemodynamics permitting 2. Continue Cardizem CD, hemodynamics permitting 3. Resume Cozaar, hemodynamics permitting 4. Continue Lipitor 5. Continue to hold Aspirin pending GI clearance for resumption Delilah Mcbride MD
--- NOTE | 2017-05-21 12:44 | PN ---
Progress Note (short form) - Note Progress Note: Patient seen and examined. She feels a bit tired otherwise OK. No complains noted HEENT: SARITA, EOM Intact Oropharynx: No thrush, No mucositis Neck: Supple Cor: RSR, No murmurs, No gallops Lungs: Clear to P&A Abd: Soft, Normal bowel sounds, No organomegaly Ext:No significant edema Last Vital Signs Temp Pulse Resp BP Pulse Ox 98.7 F 55 L 18 112/66 97 05/20/17 22:00 05/20/17 22:00 05/21/17 09:00 05/20/17 22:00 05/21/17 09:00 CBC, BMP 05/21/17 06:00 05/21/17 06:00 Current Medications Generic Name Dose Route Start Last Admin Trade Name Freq PRN Reason Stop Dose Admin Al Hydroxide/Mg Hydroxide 30 ml 05/20/17 11:15 05/21/17 11:00 Mylanta Oral Suspension - PO 30 ml Q6H [facility] Administration Atorvastatin Calcium 20 mg 05/19/17 22:00 05/20/17 22:16 Lipitor - PO 20 mg HS [facility] Administration Bisacodyl 20 mg 05/22/17 20:00 Dulcolax - PO 05/22/17 20:01 ONCE ONE Bupropion HCl 150 mg 05/19/17 10:30 05/21/17 10:56 Wellbutrin Xl - PO 150 mg DAILY [facility] Administration Diltiazem HCl 120 mg 05/19/17 10:00 05/21/17 10:57 Cardizem Cd - PO 120 mg DAILY [facility] Administration Ferrous Sulfate 325 mg 05/19/17 08:00 05/21/17 08:56 Feosol - PO 325 mg BIDWM [facility] Administration Metformin HCl 500 mg 05/19/17 07:00 05/21/17 06:39 Glucophage - PO Not Given BIDAC [facility] Nebivolol 10 mg 05/19/17 10:00 05/21/17 11:46 Bystolic - PO Not Given DAILY [facility] Pantoprazole Sodium 40 mg 05/19/17 10:00 05/21/17 10:57 Protonix - PO 40 mg DAILY [facility] Administration Polyethylene Glycol 17 gm 05/20/17 22:00 05/21/17 10:58 Miralax (For Daily Use) - PO Not Given BID [facility] 67 y/o patient with iron deficiency anemia, severe symptomatic s/p blood transfusion For GI w/u -EGD report reviewed, Ulcers+ might be the causative, hiatal hernia present. Colonoscopy pending. will f/u all the other screening anemia labs.
[2017-05-21] MEDS: ATORVASTATIN CA 20 MG TABLET (FP) PO SCH (22:40)
[2017-05-22] MEDS: metFORMIN HCL 500 MG TABLET (FP) PO SCH ×3 (06:52→17:49)
[2017-05-22] MEDS: MAG HYDROX/AL HYDROX/SIMETH 30 ML UNIT-DOSE CUP PO SCH ×4 (06:52→23:20)
[2017-05-22] MEDS ORDERED: PT OWN MED DRAWER 7, Y5N ONE (08:16)
[2017-05-22] MEDS: FERROUS SO4 325 MG TABLET (FP) PO SCH ×2 (08:23→17:49)
[2017-05-22] MEDS ORDERED: PEG3350/SOD SULF,BICARB,CL/KCL 4,000 ML SOLN.RECON PO ONE (09:00)
[2017-05-22] MEDS: NEBIVOLOL 10 MG TABLET (FP) PO SCH (10:10)
[2017-05-22] MEDS: PANTOPRAZOLE 40 MG TABLET (FP) PO SCH (10:11)
[2017-05-22] MEDS: POLYETHYLENE GLYCOL 3350 119 GM BTL PO SCH ×2 (10:12→21:50)
--- NOTE | 2017-05-22 15:58 | PN ---
Progress Note, Physician Chief Complaint: Feels better - Current Medication List Current Medications: Active Medications Al Hydroxide/Mg Hydroxide (Mylanta Oral Suspension -) 30 ml PO Q6H [facility] Last Admin: 05/22/17 10:16 Dose: 30 ml Atorvastatin Calcium (Lipitor -) 20 mg PO HS [facility] Last Admin: 05/21/17 22:40 Dose: 20 mg Bisacodyl (Dulcolax -) 20 mg PO ONCE ONE Stop: 05/22/17 20:01 Bupropion HCl (Wellbutrin Xl -) 150 mg PO DAILY [facility] Last Admin: 05/22/17 10:11 Dose: 150 mg Diltiazem HCl (Cardizem Cd -) 120 mg PO DAILY [facility] Last Admin: 05/22/17 10:11 Dose: 120 mg Ferrous Sulfate (Feosol -) 325 mg PO BIDWM [facility] Last Admin: 05/22/17 08:23 Dose: 325 mg Metformin HCl (Glucophage -) 500 mg PO BIDAC [facility] Last Admin: 05/22/17 08:23 Dose: 500 mg Nebivolol (Bystolic -) 10 mg PO DAILY [facility] Last Admin: 05/22/17 10:10 Dose: 10 mg Pantoprazole Sodium (Protonix -) 40 mg PO DAILY [facility] Last Admin: 05/22/17 10:11 Dose: 40 mg Polyethylene Glycol (Miralax (For Daily Use) -) 17 gm PO BID [facility] Last Admin: 05/22/17 10:12 Dose: 17 gm - Objective Vital Signs: Vital Signs Temperature 98.3 F 05/22/17 14:14 Pulse Rate 56 L 05/22/17 14:14 Respiratory Rate 20 05/22/17 14:14 Blood Pressure 121/65 05/22/17 14:14 O2 Sat by Pulse Oximetry (%) 97 05/21/17 22:00 Constitutional: Yes: Well Nourished Eyes: Yes: WNL HENT: Yes: WNL Neck: Yes: WNL Cardiovascular: Yes: WNL Respiratory: Yes: WNL Gastrointestinal: Yes: WNL ...Rectal Exam: Yes: Deferred Genitourinary: Yes: WNL Neurological: Yes: WNL Labs: CBC, BMP 05/21/17 06:00 05/21/17 06:00 INR, PTT INR 1.03 (0.82-1.09) 05/18/17 16:48 Assessment/Plan Colonoscopy in AM
[2017-05-22] MEDS ORDERED: BISACODYL 5 MG TABLET.DR (FP) PO ONE (20:00)
[2017-05-22] MEDS: ATORVASTATIN CA 20 MG TABLET (FP) PO SCH (21:50)
[2017-05-23] MEDS: MAG HYDROX/AL HYDROX/SIMETH 30 ML UNIT-DOSE CUP PO SCH ×4 (06:27→23:08)
[2017-05-23] MEDS: metFORMIN HCL 500 MG TABLET (FP) PO SCH ×2 (06:27→16:51)
[2017-05-23] MEDS ORDERED: PROPOFOL 20 ML ONE ×2 (08:53)
[2017-05-23] MEDS ORDERED: LIDOCAINE HCL 2% (20ML MULTI-DOSE VIAL) NR ONE (08:53)
--- NOTE | 2017-05-23 09:53 | PN ---
Progress Note (short form) - Note Progress Note: Colonoscopy report placed in procedureal section of physical chart and to be scanned into [facility]. Problem List - Problems (1) Microcytic anemia Code(s): D50.9 - IRON DEFICIENCY ANEMIA, UNSPECIFIED
--- NOTE | 2017-05-23 09:55 | PN ---
Progress Note, Physician History of Present Illness: Underwent colonoscopy demonstrating diverticulosis, small hemorrhoids. Bradyacardic. - Current Medication List Current Medications: Active Medications Al Hydroxide/Mg Hydroxide (Mylanta Oral Suspension -) 30 ml PO Q6H [facility] Last Admin: 05/23/17 06:27 Dose: Not Given Ascorbic Acid (Vitamin C -) 500 mg PO BID [facility] Atorvastatin Calcium (Lipitor -) 20 mg PO HS [facility] Last Admin: 05/22/17 21:50 Dose: 20 mg Bupropion HCl (Wellbutrin Xl -) 150 mg PO DAILY [facility] Last Admin: 05/22/17 10:11 Dose: 150 mg Diltiazem HCl (Cardizem Cd -) 120 mg PO DAILY [facility] Last Admin: 05/22/17 10:11 Dose: 120 mg Ferrous Sulfate (Feosol -) 325 mg PO BIDWM [facility] Last Admin: 05/22/17 17:49 Dose: 325 mg Metformin HCl (Glucophage -) 500 mg PO BIDAC [facility] Last Admin: 05/23/17 06:27 Dose: Not Given Nebivolol (Bystolic -) 10 mg PO DAILY [facility] Last Admin: 05/22/17 10:10 Dose: 10 mg Pantoprazole Sodium (Protonix -) 40 mg PO DAILY [facility] Last Admin: 05/22/17 10:11 Dose: 40 mg Polyethylene Glycol (Miralax (For Daily Use) -) 17 gm PO BID [facility] Last Admin: 05/22/17 21:50 Dose: 17 gm - Objective Vital Signs: Vital Signs Temperature 98.4 F 05/23/17 09:30 Pulse Rate 50 L 05/23/17 09:45 Respiratory Rate 16 05/23/17 09:45 Blood Pressure 118/42 05/23/17 09:45 O2 Sat by Pulse Oximetry (%) 98 05/23/17 09:45 Constitutional: Yes: No Distress, Calm Neck: Yes: Supple Cardiovascular: Yes: Bradycardia Respiratory: Yes: Regular, Diminished Gastrointestinal: Yes: Soft, Hypoactive Bowel Sounds Edema: No Labs: CBC, BMP 05/21/17 06:00 05/21/17 06:00 INR, PTT INR 1.03 (0.82-1.09) 05/18/17 16:48 Problem List - Problems (1) CAD (coronary artery disease) Code(s): I25.10 - ATHSCL HEART DISEASE OF [place] CORONARY ARTERY W/O ANG PCTRS Qualifiers: Coronary Disease-Associated Artery/Lesion type: [place] artery [place] vs. transplanted heart: [place] heart Associated angina: without angina Qualified Code(s): I25.10 - Atherosclerotic heart disease of [place] coronary artery without angina pectoris (2) HTN (hypertension) Code(s): I10 - ESSENTIAL (PRIMARY) HYPERTENSION Qualifiers: Hypertension type: essential hypertension Qualified Code(s): I10 - Essential (primary) hypertension (3) Hypercholesterolemia Code(s): E78.00 - PURE HYPERCHOLESTEROLEMIA, UNSPECIFIED (4) Microcytic anemia Code(s): D50.9 - IRON DEFICIENCY ANEMIA, UNSPECIFIED (5) Paroxysmal atrial fibrillation Code(s): I48.0 - PAROXYSMAL ATRIAL FIBRILLATION (6) Diabetes mellitus Code(s): E11.9 - TYPE 2 DIABETES MELLITUS WITHOUT COMPLICATIONS Qualifiers: Diabetes mellitus type: type 2 Diabetes mellitus fdc insulin use : without fdc use (7) Diastolic dysfunction without heart failure Code(s): I51.9 - HEART DISEASE, UNSPECIFIED (8) Gastric ulcer Code(s): K25.9 - GASTRIC ULCER, UNSP ACUTE OR CHRONIC, W/O HEMOR OR PERF Qualifiers: Gastric ulcer chronicity: unspecified ulcer chronicity Gastric ulcer complication status: without hemorrhage or perforation Qualified Code(s) : K25.9 - Gastric ulcer, unspecified as acute or chronic, without hemorrhage or perforation (9) Hiatal hernia Code(s): K44.9 - DIAPHRAGMATIC HERNIA WITHOUT OBSTRUCTION OR GANGRENE Assessment/Plan 1. Anemia, related to probably gastro-intestinal bleed, large hiatal hernia with gastric ulceration 2. Coronary artery disease non-obstructive CAD, angina pectoris, stable 3. Diastolic LV dysfunction with class 0 NYHA classification LV failure 4. History of paroxysmal atrial fibrillation [id number] score of 4 currently in sinus rhythm, not on anticoagulation 5. Hypertension 6. Diabetes Mellitus 7. Hypercholesterolemia PLAN: 1. Change Bystolic 10 qd to losartan 25 qd, hemodynamics permitting 2. Continue Cardizem CD 120 qd, hemodynamics permitting 3. Continue Lipitor 20 qhs 4. Resume Aspirin once hemostasis has been assured 5. D/c planning, outpatient capsule endoscopy
[2017-05-23] MEDS: ASCORBIC ACID 500 MG TABLET (FP) PO SCH ×2 (11:05→21:06)
[2017-05-23] MEDS: PANTOPRAZOLE 40 MG TABLET (FP) PO SCH (11:05)
[2017-05-23] MEDS: FERROUS SO4 325 MG TABLET (FP) PO SCH ×2 (11:09→16:51)
[2017-05-23] MEDS: POLYETHYLENE GLYCOL 3350 119 GM BTL PO SCH ×2 (11:11→21:04)
[2017-05-23] MEDS: NEBIVOLOL 10 MG TABLET (FP) PO SCH (11:11)
--- NOTE | 2017-05-23 16:53 | PATH ---
Surgical Pathology Report Patient Name: JOHN SPARROW [facility]. Rec. #: [id number] /Age/Gender: 1950 (Age: 67) / F Account: [id number] Location: [facility] MED/SURG Taken: 05/20/2017 Received: 05/20/2017 Reported: 05/23/2017 Physicians: Rohit Ibarra M.D. Specimen(s) Received A: BX DUODENUM B: BX ANTRUM C: BX GASTRIC BODY POLYP Clinical History Anemia, rule out peptic ulcer disease Hiatal hernia, gastric body, polyp Final Diagnosis A. DUODENUM, SECOND PORTION AND BULB, BIOPSY: DUODENAL MUCOSA WITH FOCAL VINNY'S GLANDS HYPERPLASIA. NO HISTOLOGIC EVIDENCE OF GLUTEN SENSITIVE ENTEROPATHY (CELIAC DISEASE). B. STOMACH, ANTRUM, BIOPSY: GASTRIC ANTRAL MUCOSA WITH MODERATE CHRONIC GASTRITIS AND MILD REACTIVE GASTROPATHY. IMMUNOSTAIN FOR H. PYLORI IS NEGATIVE FOR ORGANISMS. C. STOMACH, BODY, POLYP, BIOPSY: GASTRIC OXYNTIC MUCOSA WITH FUNDIC GLAND POLYP AND MILD CHRONIC GASTRITIS. IMMUNOSTAIN FOR H. PYLORI IS NEGATIVE FOR ORGANISMS. Electronically Signed Luis Daniel Velasquez M.D. Gross Description A. Received in formalin, labeled "biopsy second portion of duodenum and bulb" are 3 bello, irregular portions of soft tissue ranging from 0.3-0.4 cm in greatest dimension. The specimens are submitted in toto in one cassette. B. Received in formalin, labeled "biopsy antrum" are 2 bello, irregular portions of soft tissue measuring 0.1 and 0.3 cm in greatest dimension. The specimens are submitted in toto in one cassette. C. Received in formalin, labeled "biopsy gastric body polyp" is a bello, irregular portion of soft tissue measuring 0.4 cm in greatest dimension. The specimen is submitted in toto in one cassette. 05/20/201705/20/2017
[2017-05-23] MEDS: ATORVASTATIN CA 20 MG TABLET (FP) PO SCH (21:06)
[2017-05-24 00:08] LABS: A/G RATIO 1.1 (0.7-1.7); ALBUMIN 3.2 g/dL (2.9-4.4); ALPHA-1-GLOBULIN 0.2 g/dL (0.0-0.4); GAMMA GLOBULIN 1.1 g/dL (0.4-1.8); GLOBULIN, TOTAL 3.1 g/dL (2.2-3.9); M-SPIKE Not Observed g/dL (Not Observed); TOTAL PROTEIN 6.3 g/dL (6.0-8.5)
[2017-05-24] MEDS: MAG HYDROX/AL HYDROX/SIMETH 30 ML UNIT-DOSE CUP PO SCH (06:03)
[2017-05-24] MEDS: metFORMIN HCL 500 MG TABLET (FP) PO SCH (06:29)
--- NOTE | 2017-05-24 08:38 | DS ---
Physical Examination Vital Signs: Vital Signs Temperature 98.6 F 05/24/17 06:00 Pulse Rate 51 L 05/24/17 06:00 Respiratory Rate 20 05/24/17 06:00 Blood Pressure 134/64 05/24/17 06:00 O2 Sat by Pulse Oximetry (%) 94 L 05/23/17 21:00 Findings/Remarks: Admitted with sever anemia 6.3 EGD showed large hyatal hernia with mucosal bleeding Constitutional: Yes: No Distress Eyes: Yes: WNL HENT: Yes: WNL Neck: Yes: WNL Cardiovascular: Yes: WNL Respiratory: Yes: WNL Gastrointestinal: Yes: Normal Bowel Sounds ...Rectal Exam: Yes: Deferred Renal/: Yes: Urethral Discharge Musculoskeletal: Yes: WNL Labs: CBC, BMP 05/21/17 06:00 05/21/17 06:00 Discharge Summary Reason For Visit: ANEMIA Current Active Problems Anemia (Acute) CAD (coronary artery disease) (Acute) Diabetes mellitus (Acute) Diastolic dysfunction without heart failure (Acute) Gastric ulcer (Acute) HTN (hypertension) (Acute) Hiatal hernia (Acute) Hypercholesterolemia (Acute) Microcytic anemia (Acute) Paroxysmal atrial fibrillation (Acute) Shortness of breath (Acute) Condition: Guarded - Instructions Referrals: Luigi Multani MD [Primary Care Provider] - Winifred Chavez MD [Staff Physician] - 2 Weeks - Home Medications Comprehensive Discharge Medication List: Ambulatory Orders Aspirin [ASA -] 81 mg PO DAILY 05/19/17 Atorvastatin Ca [Lipitor] 20 mg PO HS 05/19/17 Diltiazem HCl [Cartia Xt] 120 mg PO AM 05/19/17 Losartan Potassium 05/19/17 Metformin HCl 500 mg PO BID 05/19/17 Nebivolol [Bystolic -] 10 mg PO HS 05/19/17 Omeprazole 40 mg PO DAILY 05/19/17
[2017-05-24] MEDS: FERROUS SO4 325 MG TABLET (FP) PO SCH (08:49)
[2017-05-24] MEDS: PANTOPRAZOLE 40 MG TABLET (FP) PO SCH (09:49)
[2017-05-24] MEDS: ASCORBIC ACID 500 MG TABLET (FP) PO SCH (09:50)
[2017-05-24] MEDS: POLYETHYLENE GLYCOL 3350 119 GM BTL PO SCH (09:53)
[2017-05-24] MEDS ORDERED: LOSARTAN POTASSIUM 25 MG TABLET PO SCH (10:00)
[2017-05-24 12:11] VITALS: BP 122/67; PULSE 62; TEMP 98.9
[2017-05-24 14:14] LABS: Hgb A2 1.5 % (0.7-3.1)
== END 2017-05-24 11:02 | disposition home or self-care (01) | DRG 812 ==
LOC: JER 14:23 → J7W 20:07
PROVIDERS: ADMIT Internal Medicine; ATTEND Internal Medicine
PROC: 30233H1 Transfusion of Nonautologous Whole Blood into Peripheral Vein, Percutaneous Approach (ICD-10-PCS; 2017-05-19)
PROC: 0DB68ZX Excision of Stomach, Via Natural or Artificial Opening Endoscopic, Diagnostic (ICD-10-PCS; 2017-05-20)
PROC: 0DB68ZZ Excision of Stomach, Via Natural or Artificial Opening Endoscopic (ICD-10-PCS; principal; 2017-05-20 13:00)
PROC: 0DJD8ZZ Inspection of Lower Intestinal Tract, Via Natural or Artificial Opening Endoscopic (ICD-10-PCS; 2017-05-23)
DX: D50.9 Iron deficiency anemia, unspecified (principal); R00.1 Bradycardia, unspecified; K44.9 Diaphragmatic hernia without obstruction or gangrene; K25.9 Gastric ulcer, unspecified as acute or chronic, without hemorrhage or perforation; K21.9 Gastro-esophageal reflux disease without esophagitis; K64.8 Other hemorrhoids; K31.7 Polyp of stomach and duodenum; K57.30 Diverticulosis of large intestine without perforation or abscess without bleeding; E11.9 Type 2 diabetes mellitus without complications; I48.0 Paroxysmal atrial fibrillation; I10 Essential (primary) hypertension; E78.00 Pure hypercholesterolemia, unspecified; F41.9 Anxiety disorder, unspecified; I25.10 Atherosclerotic heart disease of native coronary artery without angina pectoris
CPT/HCPCS: 36415; 36430; 71010-TC; 80048; 80053; 81003; 81015; 82272; 82607; 82728; 82746; 82784; 83021; 83540; 83550; 83615; 84155; 84165; 84443; 84484; 85025; 85027; 85044; 85610; 85651; 85660; 85730; 86334; 86850; 86900; 86901; 86922; 88305-TC; 93005; 93010; 99282-25; P9038; P9058

== ENCOUNTER 2020-08-27 22:29 | Emergency (ER) | payer OTHER, BC ==
[2020-08-27 22:53] VITALS: BP 135/86; PULSE 60; TEMP 98; BMI 30.5
[2020-08-28 00:17] LABS: BASO % 0.6 % (0-2.0); EOS % 2.2 % (0-4.5); HEMATOCRIT 36.9 % (32.4-45.2); HEMOGLOBIN 12.2 GM/dL (10.7-15.3); LYMPH % 32.5 % (8-40); MCH 30.2 pg (25.7-33.7); MCHC 33.1 g/dl (32.0-36.0); MEAN CELL VOLUME 91.2 fl (80-96); MEAN PLT VOLUME 9.4 fl (7.5-11.1); MONO % 7.8 % (3.8-10.2); NEUT % 56.9 % (42.8-82.8); PLATELET COUNT 204 K/MM3 (134-434); RBC 4.05 M/mm3 (3.60-5.2); RDW 14.3 % (11.6-15.6); WHITE BLOOD COUNT 7.1 K/mm3 (4.0-10.0)
[2020-08-28 00:47] LABS: ALBUMIN 3.8 g/dl (3.4-5.0); BLOOD UREA NITROGEN 23.6 mg/dL (7-18); CALCIUM 9.7 mg/dL (8.5-10.1)
[2020-08-28 00:51] LABS: CREATININE 1.1 mg/dL (0.55-1.3)
[2020-08-28 00:52] LABS: BILIRUBIN,TOTAL 0.5 mg/dL (0.2-1); TOT PROT 7.6 g/dl (6.4-8.2)
[2020-08-28 01:30] LABS: POTASSIUM 3.7 mmol/L (3.5-5.1)
== END 2020-08-28 02:10 | disposition home or self-care (01) ==
LOC: JER 22:29
DX: T17.208A Unspecified foreign body in pharynx causing other injury, initial encounter (principal)
CPT/HCPCS: 36415; 70490-TC; 80053; 85025; 99284-25

== ENCOUNTER 2022-06-23 20:55 | Emergency (ER) | payer OTHER, BC ==
[2022-06-23 21:18] VITALS: BP 132/55; PULSE 62; RESP 19; TEMP 98; BMI 32.7
== END 2022-06-23 22:43 | disposition home or self-care (01) ==
LOC: JERFT 20:55
DX: H61.21 Impacted cerumen, right ear (principal)
CPT/HCPCS: 99281-25